=== PATIENT | female | born 1985 | race Caucasian/White ===

== ENCOUNTER 2018-11-11 01:21 | Emergency (ER) | payer OTHER ==
[~2018-11-11] VITALS: Ht 162.6 cm; Wt 63.5 kg
[2018-11-11 01:25] VITALS: Ht 162.6 cm; Wt 63.5 kg
[2018-11-11 04:01] VITALS: BP 118/83
== END 2018-11-11 04:01 | disposition home or self-care (01) ==
LOC: ED 01:21
DX: N39.0 Urinary tract infection, site not specified (principal)

== ENCOUNTER 2020-07-28 23:07 | Emergency (ER) | payer OTHER ==
[~2020-07-28] VITALS: Ht 162.6 cm; Wt 61.2 kg
[2020-07-28 23:08] VITALS: Ht 162.6 cm; Wt 61.2 kg
[2020-07-29 00:20] VITALS: BP 103/69
== END 2020-07-29 00:20 | disposition home or self-care (01) ==
LOC: ED 23:07
DX: H81.10 Benign paroxysmal vertigo, unspecified ear (principal); R11.10 Vomiting, unspecified
CPT/HCPCS: J8597

== ENCOUNTER 2020-11-26 21:44 | Emergency (ER) | payer OTHER ==
[~2020-11-26] VITALS: Ht 162.6 cm; Wt 74.4 kg
[2020-11-26 21:56] VITALS: BP 129/79; Ht 162.6 cm; Wt 74.4 kg
== END 2020-11-26 23:11 | disposition home or self-care (01) ==
LOC: ED 21:44
DX: K02.9 Dental caries, unspecified (principal)

== ENCOUNTER 2021-01-18 00:45 | Emergency (ER) | payer OTHER ==
[~2021-01-18] VITALS: Ht 162.6 cm; Wt 73.5 kg
[2021-01-18 00:50] VITALS: BP 136/85; Ht 162.6 cm; Wt 73.5 kg
[2021-01-18] MEDS ORDERED: DRAMAMINE LESS25 MG PO (23:53)
== END 2021-01-18 04:13 | disposition left against medical advice (07) ==
LOC: ED 00:45
DX: Z53.21 Procedure and treatment not carried out due to patient leaving prior to being seen by health care provider (principal)

== ENCOUNTER 2021-01-18 23:17 | Emergency (ER) | payer OTHER ==
[~2021-01-18] VITALS: Ht 162.6 cm; Wt 74.8 kg
[2021-01-18 23:26] VITALS: Ht 162.6 cm; Wt 74.8 kg
[2021-01-18] MEDS ORDERED: DRAMAMINE LESS25 MG PO (23:53)
[2021-01-19 01:02] VITALS: BP 122/73
== END 2021-01-19 00:50 | disposition home or self-care (01) ==
LOC: ED 23:17
DX: H81.10 Benign paroxysmal vertigo, unspecified ear (principal)
CPT/HCPCS: J8597